=== PATIENT | male | born 1970 | race Caucasian/White ===

== ENCOUNTER 2020-08-13 16:09 | Emergency (ER) | payer MEDICAID ==
[~2020-08-13] VITALS: Ht 180.3 cm; Wt 79.4 kg
--- NOTE | 2020-08-13 16:13 | Emergency Room Report ---
History of Present Illness General Source: Patient Present Illness HPI Patient is a 49-year-old male past medical history of drug abuse in a drug rehab facility who presents to the ER complaining of palpitations after smoking marijuana. Patient states that he smoked his friends marijuana about 2-1/2 hour s ago and immediately had onset of palpitations. He denies any chest pain or shortness of breath. He denies any abdominal pain, nausea or vomiting. He denies any fever or chills. He denies any focal weakness. He states that he does not know if the marijuana was laced with any other drugs as it was not his. Patient was brought in by EMS. Per EMS patient's heart rate was in the 140s. Allergies: Coded Allergies: No Known Allergies (Unverified , 08/13/20) Patient History Reviewed Nursing Documentation: PMH: Agreed; PSxH: Agreed Review of Systems All Other Systems: negative except mentioned in HPI Physical Exam Sp02 EP Interpretation: reviewed, normal General Appearance: no apparent distress, alert, GCS 15, non-toxic Head: normocephalic, atraumatic Eyes: bilateral eye normal inspection, bilateral eye PERRL ENT: hearing grossly normal, normal pharynx, no angioedema, normal voice Neck: full range of motion, supple/symm/no masses Respiratory: chest non-tender, lungs clear, normal breath sounds, speaking full sentences Cardiovascular #1: tachycardia Gastrointestinal: normal bowel sounds, non tender, soft, non-distended, no guarding, no rebound Rectal: deferred Musculoskeletal: normal range of motion, no calf tenderness, no lower extremity edema Neurologic: director statistical programming III-XII nml as tested, oriented x3 Psychiatric: no suicidal/homicidal ideation Skin: no rash Lymphatic: no adenopathy Medical Decision Making Diagnostic Impression: Primary Impression: Tetrahydrocannabinol (THC) use disorder, mild, abuse Additional Impressions: UTI (urinary tract infection) Palpitations ER Course Patient presents with palpitations after THC use. Patient was tachycardic with low-grade fever. Patient has been pancultured. Lactate is normal. White blood cell count is normal. Patient's UA possible UTI. Will treat with Cipro. Patient's chest x-ray demonstrates no acute cardiopulmonary pathology. Patient's heart rate is now in the 90s. He states that he feels much improved. I explained to the patient that this could develop into a much more serious infection and that if he starts feeling worse or has new symptoms he needs to re turn to the emergency department immediately. Patient demonstrated understanding. We also discussed the dangers of drug abuse. After discussing risks and benefits of further diagnostics, treatment plans, as well as indications for and risks of admission, the patient is agreeable to being discharged home. I have explained that their evaluation and treatment in the emergency department today is an important step towards them achieving better health but that their evaluation today is not intended to replace further evaluation and treatment by a physician in their local clinic. I have explained that while the current findings suggest no immediate life threatening emergency they will require further evaluation and treatment by a physician of their choice in their area. They understand that it will be necessary for them to review the final reports of their ED visit with their clinic physician. We have reviewed indications for return to the Emergency Department. I have explained that additional time may need to pass and/or additional testing as an outpatient may be necessary before a definitive diagnosis can be made. They tell me they are willing to follow up as instructed within the timeframe I recommend. They appear to understand what we discussed. Additionally they understand that if they are unable to be seen by an outpatient physician they are welcome, and in fact should, return to the Emergency Department for a repeat evaluation. The patient is stable at time of discharge. Laboratory Tests Test 08/13/20 16:27 08/13/20 17:00 08/13/20 17:30 White Blood Count 7.2 K/UL (4.8-10.8) Red Blood Count 4.11 M/UL (4.70-6.10) L Hemoglobin 13.4 G/DL (14.2-18.0) L Hematocrit 39.1 % (42.0-52.0) L Mean Corpuscular Volume 95 FL (80-99) Mean Corpuscular Hemoglobin 32.7 PG (27.0-31.0) H Mean Corpuscular Hemoglobin Concent 34.4 G/DL (32.0-36.0) Red Cell Distribution Width 11.9 % (11.6-14.8) Platelet Count 178 K/UL (150-450) Mean Platelet Volume 8.9 FL (6.5-10.1) Neutrophils (%) (Auto) 56.7 % (45.0-75.0) Lymphocytes (%) (Auto) 30.6 % (20.0-45.0) Monocytes (%) (Auto) 10.7 % (1.0-10.0) H Eosinophils (%) (Auto) 1.1 % (0.0-3.0) Basophils (%) (Auto) 1.0 % (0.0-2.0) Prothrombin Time 10.9 SEC (9.30-11.50) Prothrombin Time INR 1.0 (0.9-1.1) Activated Partial Thromboplast Time 26 SEC (23-33) Sodium Level 137 MMOL/L (136-145) Potassium Level 4.0 MMOL/L (3.5-5.1) Chloride Level 101 MMOL/L (98-107) Carbon Dioxide Level 25 MMOL/L (21-32) Anion Gap 11 mmol/L (5-15) Blood Urea Nitrogen 11 mg/dL (7-18) Creatinine 1.0 MG/DL (0.55-1.30) Estimated Glomerular Filtration Rate > 60 mL/min (>60) Glucose Level 170 MG/DL (74-106) H Calcium Level 8.1 MG/DL (8.5-10.1) L Magnesium Level 2.0 MG/DL (1.8-2.4) Total Bilirubin 0.2 MG/DL (0.2-1.0) Aspartate Amino Transferase (AST) 13 U/L (15-37) L Alanine Aminotransferase (ALT) 14 U/L (12-78) Alkaline Phosphatase 66 U/L (46-116) Troponin I 0.000 ng/mL (0.000-0.056) Total Protein 7.3 G/DL (6.4-8.2) Albumin 3.1 G/DL (3.4-5.0) L Globulin 4.2 g/dL Albumin/Globulin Ratio 0.7 (1.0-2.7) L Thyroid Stimulating Hormone (TSH) 1.249 uiU/mL (0.358-3.740) Free Thyroxine 1.13 NG/DL (0.76-1.46) Lactic Acid Level 1.80 mmol/L (0.4-2.0) Urine Color Yellow Urine Appearance Clear Urine pH 6 (4.5-8.0) Urine Specific [place] 1.015 (1.005-1.035) Urine Protein Negative (NEGATIVE) Urine Glucose (UA) Negative (NEGATIVE) Urine Ketones 1+ (NEGATIVE) H Urine Blood Negative (NEGATIVE) Urine Nitrite Negative (NEGATIVE) Urine Bilirubin Negative (NEGATIVE) Urine Urobilinogen 1 MG/DL (0.0-1.0) H Urine Leukocyte Esterase 1+ (NEGATIVE) H Urine RBC 0 /HPF (0 - 0) Urine WBC 0-2 /HPF (0 - 0) Urine Squamous Epithelial Cells Occasional /LPF Urine Bacteria Occasional /HPF (NONE) Urine Mucus Occasional /LPF Urine Opiates Screen Negative (NEGATIVE) Urine Barbiturates Screen Negative (NEGATIVE) Phencyclidine (PCP) Screen Negative (NEGATIVE) Urine Amphetamines Screen Negative (NEGATIVE) Urine Benzodiazepines Screen Negative (NEGATIVE) Urine Cocaine Screen Negative (NEGATIVE) Urine Marijuana (THC) Screen Positive (NEGATIVE) H Microbiology Date/Time Source Procedure Growth Status 08/13/20 16:50 Nasopharynx SARS-CoV-2 RdRp Gene Assay - Final Complete EKG Diagnostic Results Troponin ordered: Yes When was troponin ordered?: Aug 13, 2020 EKG Time: 16:28 EP Interpretation: Chuyita Drake MD Rate: tachycardiac - 131 bpm Rhythm: other - Sinus tachycardia ST Segments: no acute changes ASA given to the pt in ED: No Rhythm Strip Diag. Results Rhythm Strip Time: 16:34 EP Interpretation: yes - Chuyita Drake MD Rate: 125 bpm Rhythm: no PVC's, no ectopy, other - Minus tachycardia Chest X-Ray Diagnostic Results Chest X-Ray Diagnostic Results : Chest X-Ray Ordered: Yes # of Views/Limited/Complete: 1 View Indication: Other - palpitations EP Interpretation: Yes Interpretation: no consolidation, no effusion, no pneumothorax, no acute cardiopulmonary disease Impression: No acute disease Electronically Signed by: Chuyita Drake MD Disposition: HOME, SELF-CARE Condition: Stable Scripts Acetaminophen* (TYLENOL EXTRA STRENGTH*) 500 Mg Tablet 1000 MG ORAL Q6H, #30 TAB Prov: Chuyita Drake M.D. 08/13/20 Ciprofloxacin Hcl* (CIPROFLOXACIN HCL*) 500 Mg Tablet 500 MG ORAL Q12H, #20 TAB 0 Refills Prov: Chuyita Drake M.D. 08/13/20 Additional Instructions: After discussing risks and benefits of further diagnostics, treatment plans, as well as indications for and risks of admission, the patient is agreeable to being discharged home. I have explained that their evaluation and treatment in the emergency department today is an important step towards them achieving better health but that their evaluation today is not intended to replace further evaluation and treatment by a physician in their local clinic. I have explained that while the current findings suggest no immediate life threatening emergency they will require further evaluation and treatment by a physician of their choice in their area. They understand that it will be necessary for them to review the final reports of their ED visit with their clinic physician. We have reviewed indications for return to the Emergency Department. I have explained that additional time may need to pass and/or additional testing as an outpatient may be necessary before a definitive diagnosis can be made. They tell me they are willing to follow up as instructed within the timeframe I recommend. They appear to understand what we discussed. Additionally they understand that if they are unable to be seen by an outpatient physician they are welcome, and in fact should, return to the Emergency Department for a repeat evaluation. The patient is stable at time of discharge. Chuyita Drake M.D. Aug 13, 2020 16:13
[2020-08-13] MEDS ORDERED: LORazepam Inj 2mg/ml 1ml IV ONE (16:15)
[2020-08-13 16:19] VITALS: BP 133/77
--- NOTE | 2020-08-13 16:19 | NUR ---
ED Nurse Note: Patient brought in by RA 61 due to palpitation after using marijuana a couple of hours ago. States 5/10 CP. Respirations even and unlabored. Skin is hot to touch. 100.7 F upon ED arrival. Denies any coughing or flu symptoms. AAO x4, ambulatory and follows commands.
--- NOTE | 2020-08-13 16:41 | Diagnostic Imaging Report ---
Indication: Chest pain Technique: One view of the chest Comparison: none Findings: Lungs and pleural spaces are clear. Heart size is normal. Impression: No acute process
[2020-08-13] MEDS ORDERED: Acetaminophen 500mg (ES) tab ORAL ONE (16:45)
--- NOTE | 2020-08-13 16:59 | NUR ---
ED Nurse Note: Blood specimen and covid19 swab sent. patient unable to urinate at this time.
[2020-08-13 17:01] LABS: ANION GAP 11 mmol/L (5-15); BLOOD UREA NITROGEN 11 mg/dL (7-18); CALCIUM 8.1 MG/DL (8.5-10.1); CARBON DIOXIDE 25 MMOL/L (21-32); CHLORIDE 101 MMOL/L (98-107); EOSINOPHILS % (AUTO) 1.1 % (0.0-3.0); HEMATOCRIT 39.1 % (42.0-52.0); HEMOGLOBIN 13.4 G/DL (14.2-18.0); LYMPHOCYTES % (AUTO) 30.6 % (20.0-45.0); MEAN CORPUSCULAR VOLUME 95 FL (80-99); MONOCYTES % (AUTO) 10.7 % (1.0-10.0); NEUTROPHILS % (AUTO) 56.7 % (45.0-75.0); PLATELET COUNT 178 K/UL (150-450); RED BLOOD COUNT 4.11 M/UL (4.70-6.10); RED CELL DISTRIBUTION WIDTH 11.9 % (11.6-14.8); SODIUM 137 MMOL/L (136-145); WHITE BLOOD COUNT 7.2 K/UL (4.8-10.8)
[2020-08-13 17:10] VITALS: BP 108/73
[2020-08-13 17:13] LABS: ALANINE AMINOTRANSFERASE 14 U/L (12-78); ALBUMIN 3.1 G/DL (3.4-5.0); ALBUMIN/GLOBULIN RATIO 0.7 (1.0-2.7); ALKALINE PHOSPHATASE 66 U/L (46-116); ASPARTATE AMINO TRANSFERASE 13 U/L (15-37); BILIRUBIN,TOTAL 0.2 MG/DL (0.2-1.0)
--- NOTE | 2020-08-13 17:46 | NUR ---
ED Nurse Note: Patient resting on bed and sinus tach on environmental monitoring technician 110-117 at this time. Respirations are even an unlabored. IV fluids are runnning.
[2020-08-13 17:47] LABS: APPEARANCE,URINE CLEAR; BILIRUBIN, URINE NEGATIVE (NEGATIVE); GLUCOSE, URINE (UA) NEGATIVE (NEGATIVE); KETONES,URINE 1+ (NEGATIVE); LEUKOCYTE ESTERASE ,URINE 1+ (NEGATIVE); NITRITE,URINE NEGATIVE (NEGATIVE); PH,URINE 6 (4.5-8.0); PROTEIN,URINE NEGATIVE (NEGATIVE); UROBILINOGEN,URINE 1 MG/DL (0.0-1.0)
[2020-08-13 17:50] LABS: COLOR,URINE YELLOW
[2020-08-13] MEDS ORDERED: CIPROFLOXACIN500 M2 ORAL (18:10)
[2020-08-13] MEDS ORDERED: ACETAMINOPHEN500 MG ORAL (18:10)
[2020-08-13] MEDS ORDERED: Ciprofloxacin 500mg tab ORAL ONE (18:15)
--- NOTE | 2020-08-13 18:32 | NUR ---
ED Nurse Note: CALLED [facility] AT . PER GI THAT LOCATION IS NOW CLOSED WAS GIVEN THE PHONE NUMBER OF THEIR TRIAL CONSULTANT TO TAKE PT BACK. SANAZ - [phone]; LEFT VOICEMAIL.
[2020-08-13 18:36] VITALS: BP 108/73
--- NOTE | 2020-08-13 18:36 | NUR ---
ER DISCHARGE NOTE: Patient is cleared to be discharged per ERMD, pt is aox4, on room air, with stable vital signs. pt was given dc and prescription instructions, pt was able to verbalize understanding, pt id band and iv site removed without complications. pt is able to ambulate with steady gait. pt took all belongings.
--- NOTE | 2020-08-14 15:59 | Cardiology Report ---
APPROVED REPORT EKG Measurement Heart [id number] <Conclusion> Sinus tachycardia Nonspecific T wave abnormality Abnormal ECG
== END 2020-08-13 18:35 | disposition home or self-care (01) ==
LOC: EDBD 16:09 → EMR 16:15
DX: R00.2 Palpitations (principal); N39.0 Urinary tract infection, site not specified; F12.10 Cannabis abuse, uncomplicated; R00.0 Tachycardia, unspecified; R00.1 Bradycardia, unspecified
CPT/HCPCS: 36415; 71045; 80053; 80307; 81003; 83605; 83735; 84439; 84443; 84484; 85025; 85610; 85730; 87040; 93005; 96361; 96374; J7030; U0002; Z7502; 99284

== ENCOUNTER 2020-08-15 21:08 | Emergency (ER) | payer MEDICAID ==
[~2020-08-15] VITALS: Ht 180.3 cm; Wt 79.4 kg
[~2020-08-15 21:08] MED LIST: ACETAMINOPHEN500 MG ORAL; CIPROFLOXACIN500 M2 ORAL
--- NOTE | 2020-08-15 21:15 | NUR ---
ED Nurse Note: Patient brought into ED by RA Moran from the [facility] c/o chronic umbilical hernia. patient changed into gown; attached to monitor. able to ambulate with steady gait. ao4 with no acute distress. all safety measures met.
[2020-08-15 21:25] VITALS: BP 112/70
--- NOTE | 2020-08-15 21:25 | NUR ---
ED Nurse Note: iv access established. blood and urine collected; sent down to lab.
[2020-08-15] MEDS ORDERED: Omnipaque-300 100ml vial INJ PRN (21:30)
[2020-08-15 21:50] LABS: APPEARANCE,URINE CLEAR; BILIRUBIN, URINE NEGATIVE (NEGATIVE); COLOR,URINE PALE YELLOW; GLUCOSE, URINE (UA) NEGATIVE (NEGATIVE); KETONES,URINE NEGATIVE (NEGATIVE); LEUKOCYTE ESTERASE ,URINE NEGATIVE (NEGATIVE); NITRITE,URINE NEGATIVE (NEGATIVE); PH,URINE 8 (4.5-8.0); PROTEIN,URINE NEGATIVE (NEGATIVE); UROBILINOGEN,URINE NORMAL MG/DL (0.0-1.0)
[2020-08-15 21:52] LABS: BASOPHILS % (AUTO) 1.1 % (0.0-2.0); EOSINOPHILS % (AUTO) 1.8 % (0.0-3.0); HEMOGLOBIN 13.5 G/DL (14.2-18.0); LYMPHOCYTES % (AUTO) 41.6 % (20.0-45.0); MEAN CORPUSCULAR VOLUME 97 FL (80-99); MONOCYTES % (AUTO) 8.8 % (1.0-10.0); NEUTROPHILS % (AUTO) 46.7 % (45.0-75.0); PLATELET COUNT 201 K/UL (150-450); RED BLOOD COUNT 4.14 M/UL (4.70-6.10); RED CELL DISTRIBUTION WIDTH 12.2 % (11.6-14.8); WHITE BLOOD COUNT 7.6 K/UL (4.8-10.8)
--- NOTE | 2020-08-15 23:27 | Diagnostic Imaging Report ---
EXAM: CT Abdomen and Pelvis With Intravenous Contrast CLINICAL HISTORY: PAIN TECHNIQUE: Axial computed tomography images of the abdomen and pelvis with intravenous contrast. CTDI is 7.3 mGy and DLP is 364.8 mGy-cm. One or more of the following dose reduction techniques were used: automated exposure control, adjustment of the mA and/or kV according to patient size, use of iterative reconstruction technique. COMPARISON: None. FINDINGS: Lung bases: Left lower lobe nodule measuring 1.0 cm, partially calcified. Remainder of the lung bases are clear. ABDOMEN: Liver: Unremarkable. No mass. Gallbladder and bile ducts: Contracted gallbladder. No calcified stones. No ductal dilation. Pancreas: Unremarkable. No mass. No ductal dilation. Spleen: Unremarkable. No splenomegaly. Adrenals: Unremarkable. No mass. Kidneys and ureters: Unremarkable. No solid mass. No hydronephrosis. Stomach and bowel: Decompressed stomach with no hiatal hernia. Diverticulosis throughout the colon and sigmoid with no signs of diverticulitis. No obstruction. PELVIS: Appendix: Normal appendix. Bladder: Incompletely distended urinary bladder. Reproductive: Normal size of prostate gland. ABDOMEN and PELVIS: Intraperitoneal space: Unremarkable. No free air. No significant fluid collection. Bones/joints: Degenerative disease of the spine. No acute fracture. No dislocation. Soft tissues: Umbilical hernia measuring 9.0 cm in craniocaudal dimension containing mesenteric fat and vessels. Small fat-containing bilateral inguinal hernias. Vasculature: Unremarkable. No abdominal aortic aneurysm. Lymph nodes: Unremarkable. No enlarged lymph nodes. IMPRESSION: 1. Ventral/umbilical hernia as described containing mesenteric fat and mesenteric vessels. 2. Diverticulosis with no signs of diverticulitis. No bowel obstruction. 3. Unremarkable abdominal viscera. 4. Left lower lobe pulmonary nodule as described. Due to in her calcification, this likely represents benign etiology such as calcified granuloma. Follow-up with CT chest recommended to assess stability in 6- 12 months depending on risk factors.
--- NOTE | 2020-08-15 23:40 | Emergency Room Report ---
History of Present Illness General Chief Complaint: Abdominal Pain Source: Patient Present Illness HPI Disclaimer: Please note that this report is being documented using [employer] technology. This can lead to erroneous entry secondary to incorrect interpretation by the dictating instrument. HPI: 49-year-old male history of schizoaffective disorder, chronic umbilical hernia, presents for abdominal discomfort at his umbilical hernia site. He states is been present for about 2 days. He denies any fevers, nausea, vomiting or shortness of breath. No urinary complaints. PMH: Umbilical hernia, schizoaffective disorder PSH: Reviewed Social Hx: Recently quit smoking, occasionally uses marijuana denies other illicit drugs Allergies: Coded Allergies: No Known Allergies (Unverified , 08/13/20) COVID-19 Screening Contact w/high risk pt: No Experienced COVID-19 symptoms?: No COVID-19 Testing performed HOSPITALITY WORKERS: No Patient History Reviewed Nursing Documentation: PMH: Agreed; PSxH: Agreed Nursing Documentation-PMH Past Medical History: No History, Except For Review of Systems All Other Systems: negative except mentioned in HPI Physical Exam Vital Signs Date Time Temp Pulse Resp B/P (MAP) Pulse Ox O2 Delivery O2 Flow Rate FiO2 08/15/20 21:10 99.1 90 18 112/70 (84) 99 Room Air Sp02 EP Interpretation: reviewed, normal General Appearance: well appearing, no apparent distress Head: normocephalic, atraumatic Eyes: bilateral eye PERRL, bilateral eye EOMI ENT: hearing grossly normal, moist mucus membranes Neck: full range of motion, supple Respiratory: lungs clear, normal breath sounds, no rhonchi, no respiratory distress, no retraction, no wheezing Cardiovascular #1: normal peripheral pulses, regular rate, rhythm, no murmur Gastrointestinal: soft, non-distended, no guarding, other - Large umbilical hernia noted, reducible, mildly tender no erythema abdominal exam otherwise campbell gn Neurologic: alert, oriented x3, no focal defects Skin: normal color, warm/dry Medical Decision Making Diagnostic Impression: Primary Impression: Umbilical hernia ER Course MDM: Differential included but not limited to umbilical hernia, constipation, gastritis, colitis, diverticulitis to name a few Clinical course-laboratory studies and CT scan of the abdomen pelvis ordered. Laboratory studies showed no evidence of leukocytosis, electrolytes had no significant abnormalities, CT scan demonstrated umbilical hernia containing fat and mesenteric vessels but no evidence of obstruction or intestinal incarceration. Labs - Laboratory Tests Test 08/15/20 21:25 White Blood Count 7.6 K/UL (4.8-10.8) Red Blood Count 4.14 M/UL (4.70-6.10) L Hemoglobin 13.5 G/DL (14.2-18.0) L Hematocrit 40.0 % (42.0-52.0) L Mean Corpuscular Volume 97 FL (80-99) Mean Corpuscular Hemoglobin 32.7 PG (27.0-31.0) H Mean Corpuscular Hemoglobin Concent 33.9 G/DL (32.0-36.0) Red Cell Distribution Width 12.2 % (11.6-14.8) Platelet Count 201 K/UL (150-450) Mean Platelet Volume 7.3 FL (6.5-10.1) Neutrophils (%) (Auto) 46.7 % (45.0-75.0) Lymphocytes (%) (Auto) 41.6 % (20.0-45.0) Monocytes (%) (Auto) 8.8 % (1.0-10.0) Eosinophils (%) (Auto) 1.8 % (0.0-3.0) Basophils (%) (Auto) 1.1 % (0.0-2.0) Prothrombin Time Pending Prothrombin Time INR Pending Activated Partial Thromboplast Time Pending Urine Color Pale yellow Urine Appearance Clear Urine pH 8 (4.5-8.0) Urine Specific [place] 1.015 (1.005-1.035) Urine Protein Negative (NEGATIVE) Urine Glucose (UA) Negative (NEGATIVE) Urine Ketones Negative (NEGATIVE) Urine Blood Negative (NEGATIVE) Urine Nitrite Negative (NEGATIVE) Urine Bilirubin Negative (NEGATIVE) Urine Urobilinogen Normal MG/DL (0.0-1.0) Urine Leukocyte Esterase Negative (NEGATIVE) Sodium Level Pending Potassium Level Pending Chloride Level Pending Carbon Dioxide Level Pending Blood Urea Nitrogen Pending Creatinine Pending Estimated Glomerular Filtration Rate Pending Glucose Level Pending Lactic Acid Level Pending Calcium Level Pending Magnesium Level Pending Total Bilirubin Pending Aspartate Amino Transferase (AST) Pending Alanine Aminotransferase (ALT) Pending Alkaline Phosphatase Pending Total Protein Pending Albumin Pending Globulin Pending Lipase Pending Urine Opiates Screen Negative (NEGATIVE) Urine Barbiturates Screen Negative (NEGATIVE) Phencyclidine (PCP) Screen Negative (NEGATIVE) Urine Amphetamines Screen Negative (NEGATIVE) Urine Benzodiazepines Screen Negative (NEGATIVE) Urine Cocaine Screen Negative (NEGATIVE) Urine Marijuana (THC) Screen Negative (NEGATIVE) On reevaluation: Patient resting comfortably Plan-discharge home follow-up PMD for referral to surgery for hernia removal. CT/MRI/US Diagnostic Results CT/MRI/US Diagnostic Results : Imaging Test Ordered: CT scan abdomen and pelvis Impression IMPRESSION: 1. Ventral/umbilical hernia as described containing mesenteric fat and mesenteric vessels. 2. Diverticulosis with no signs of diverticulitis. No bowel obstruction. 3. Unremarkable abdominal viscera. 4. Left lower lobe pulmonary nodule as described. Due to in her calcification, this likely represents benign etiology such as calcified granuloma. Follow-up with CT chest recommended to assess stability in 6- 12 months depending on risk factors. Last Vital Signs Date Time Temp Pulse Resp B/P (MAP) Pulse Ox O2 Delivery O2 Flow Rate FiO2 08/15/20 21:10 99.1 90 18 112/70 (84) 99 Room Air Status: improved Disposition: HOME, SELF-CARE Condition: Stable Scripts Naproxen* (NAPROXEN*) 500 Mg Tablet 500 MG ORAL TWICE A WEEK PRN for For Pain, #60 TAB 0 Refills Prov: Jeffrey Ignacio M.D. 08/16/20 Referrals: [facility],REFERRING (PCP) Jeffrey Ignacio M.D. Aug 15, 2020 23:40
[2020-08-16] MEDS ORDERED: NAPROXEN500 M2 ORAL
--- NOTE | 2020-08-16 | NUR ---
ER DISCHARGE NOTE: Patient is cleared to be discharged per ERMD, pt is aox4, on room air, with stable vital signs. pt was given dc and prescription instructions, pt was able to verbalize understanding, pt id band and iv site removed without complications. pt is able to ambulate with steady gait. pt took all belongings. patient denies homelessness; provided home adress on file.
[2020-08-16 00:10] VITALS: BP 112/70
[2020-08-16 00:37] LABS: BLOOD UREA NITROGEN 11 mg/dL (7-18); CALCIUM 8.8 MG/DL (8.5-10.1); CARBON DIOXIDE 29 MMOL/L (21-32); CHLORIDE 103 MMOL/L (98-107); CREATININE 0.9 MG/DL (0.55-1.30); POTASSIUM 5.1 MMOL/L (3.5-5.1); SODIUM 133 MMOL/L (136-145)
[2020-08-16 00:38] LABS: ALANINE AMINOTRANSFERASE 11 U/L (12-78); ALBUMIN/GLOBULIN RATIO 0.8 (1.0-2.7); ALKALINE PHOSPHATASE 61 U/L (46-116); ASPARTATE AMINO TRANSFERASE 26 U/L (15-37); BILIRUBIN,TOTAL 0.3 MG/DL (0.2-1.0)
== END 2020-08-16 | disposition home or self-care (01) ==
LOC: EDBD 21:08 → EDUNIT# 21:08 → EMR 21:30
DX: K42.9 Umbilical hernia without obstruction or gangrene (principal); Z87.891 Personal history of nicotine dependence; K57.90 Diverticulosis of intestine, part unspecified, without perforation or abscess without bleeding; R91.1 Solitary pulmonary nodule; K43.9 Ventral hernia without obstruction or gangrene
CPT/HCPCS: 36415; 74177; 80053; 80307; 81003; 83605; 83690; 83735; 85025; 85610; 85730; 96360; J7030; Q9965; Z7502; 99284